=== PATIENT | male | born 1950 | race Caucasian/White ===

== ENCOUNTER 2017-01-06 13:08 | Emergency (ER) | payer OTHER ==
[~2017-01-06] VITALS: Ht 170.2 cm; Wt 100.0 kg
[2017-01-06 14:11] LABS: INFLUENZA A NONE DETECTED (NONE DETECT); INFLUENZA B NONE DETECTED (NONE DETECT)
[2017-01-06] MEDS ORDERED: AMOXICILLIN500 MG PO (14:27)
[2017-01-06] MEDS ORDERED: TUSSIONEX1 ML PO (14:27)
[2017-01-06 14:45] VITALS: BP 116/74
== END 2017-01-06 14:45 | disposition home or self-care (01) | DRG 203 ==
LOC: ED 13:08
PROVIDERS: Emergency Medicine
DX: J40 Bronchitis, not specified as acute or chronic (principal); R05 Cough